=== PATIENT | female | born 1990 | race African-American/Black ===

== ENCOUNTER 2025-03-09 22:21 | Emergency (ER) | payer OTHER ==
[~2025-03-09] VITALS: Ht 165.1 cm; Wt 71.9 kg
[2025-03-09] MEDS: LIDOCAINE 2% MDV 20 ML VIAL SC ONE (23:55)
[2025-03-10] MEDS: TETANUS/DIPHTH/ACEL. PERTUSSIS 0.5 ML SYR IM.IMMUN ONE (00:37)
[2025-03-10 00:42] VITALS: BP 138/71; TEMP 98; O2SAT 97
== END 2025-03-10 00:48 | disposition home or self-care (01) ==
LOC: M ED 22:21
DX: S61.211A Laceration without foreign body of left index finger without damage to nail, initial encounter (principal); W31.2XXA Contact with powered woodworking and forming machines, initial encounter; Y92.009 Unspecified place in unspecified non-institutional (private) residence as the place of occurrence of the external cause; Y93.9 Activity, unspecified; Y99.9 Unspecified external cause status